=== PATIENT | female | born 1950 | race Caucasian/White ===

== ENCOUNTER 2023-06-21 12:59 | Day surgery (SDC) | payer MEDICARE, OTHER ==
[2023-06-21] VITALS (8 sets, daily range): BP systolic 106–145; BP diastolic 54–80; PULSE 76–86; RESP 15–16; TEMP 98; O2SAT 95–99
[~2023-06-21] VITALS: Ht 160 cm; Wt 62.5 kg
[~2023-06-21 12:59] MED LIST: ALPR0.5T8 PO; AMIT100T2 PO; FURO-61 PO; LEVO50TA8 PO; LISI10TA27 PO; LOP25T PO; MESA1.2T PO; MULT-1179 PO; PROBIOTIC1 EACH PO; PROM25TA14 PO; VITA150T
[2023-06-21] MEDS ORDERED: normal saline 1,000 ML IV SCH (13:20)
[2023-06-21] MEDS ORDERED: LORazepam 0.5 MG tablet PO PRN (13:20)
[2023-06-21] MEDS ORDERED: diphenhydrAMINE 25mg capsule PO PRN (13:20)
[2023-06-21] MEDS ORDERED: ESTR1PAT43 TOP (13:38)
[2023-06-21] MEDS ORDERED: LEVO25TA49 PO (13:38)
[2023-06-21] MEDS ORDERED: CALC-855 PO (13:38)
[2023-06-21 14:23] LABS: BASOPHILS # (AUTO) 0.1 X10'3 (0-0.2); BASOPHILS % (AUTO) 1.2 % (0-1); EOSINOPHILS # (AUTO) 0.2 X10'3 (0-0.9); EOSINOPHILS % (AUTO) 3.3 % (0-6); HEMATOCRIT 38.3 % (35.0-45.0); HEMOGLOBIN 12.6 g/dl (12.0-16.0); LYMPHOCYTES # (AUTO) 1.5 X10'3 (1.1-4.8); LYMPHOCYTES % (AUTO) 25.1 % (21-51); MEAN CORPUSCULAR HEMOGLOBIN 29.5 PG (27.0-31.0); MEAN CORPUSCULAR HGB CONC 32.8 g/dL (33.0-36.5); MEAN CORPUSCULAR VOLUME 89.9 FL (78-98); MEAN PLATELET VOLUME 8.7 FL (7.4-10.4); MONOCYTES # (AUTO) 0.4 X10'3 (0-0.9); MONOCYTES % (AUTO) 6.3 % (2-12); NEUTROPHILS # (AUTO) 3.7 X10'3 (1.8-7.7); NEUTROPHILS % (AUTO) 64.1 % (42-75); PLATELET COUNT 250 X10'3 (140-440); RED BLOOD COUNT 4.26 X10'6 (4.20-5.60); RED CELL DISTRIBUTION WIDTH 13.8 % (11.5-14.5); WHITE BLOOD COUNT 5.8 X10'3 (4.5-11.0)
[2023-06-21 14:40] LABS: ALBUMIN 3.7 G/DL (3.4-5.0); ANION GAP 9 (8-16); BLOOD UREA NITROGEN 24 MG/DL (7-18); BUN/CREATININE RATIO 21.8 (10.0-20.0); CALCIUM 9.4 MG/DL (8.5-10.1); CHLORIDE 100 MMOL/L (99-107); GLUCOSE 93 MG/DL (70-104); POTASSIUM 4.5 MMOL/L (3.5-5.1); SODIUM 139 MMOL/L (135-145); eGFR 49 ML/MIN
[2023-06-21] MEDS ORDERED: nitroGLYCERIN-Tridil 50MG/D5W 250 ML IV ONE (15:30)
[2023-06-21] MEDS ORDERED: fentaNYL/PF 50MCG/1 ML 2ML syringe ONE (15:30)
[2023-06-21] MEDS ORDERED: midazolam 1 mg/ML 2ml injection ONE (15:30)
[2023-06-21] MEDS ORDERED: LIDOcaine 1% (10mg/ml) 2ml vial ONE (15:30)
[2023-06-21] MEDS ORDERED: iohexol 350MG/ML 100ml bottle IV ONE (15:30)
[2023-06-21] MEDS ORDERED: heparin 1,000unit/ml 10ml vial 10 ML ONE (15:30)
[2023-06-21] MEDS ORDERED: verapamil 2.5 mg/ml inj IV ONE (15:30)
[2023-06-21] MEDS ORDERED: iohexol 350 MG/ML 50ML vial IV ONE (15:53)
--- NOTE | 2023-06-21 16:46 | NUR ---
Pt's hand slightly blue and c/o pain in the right hand. No numbness or tingling, CSM intact and sp02 pleth good. Removed 2cc for comfort but radial site started bleeding. Immediately placed 2 cc back in vasc band. Bleeding stable. Hand no longer looks blue but pt still c/o pain. States it's tolerable. Cont to monitor.
[2023-06-21] MEDS ORDERED: proCHLORperazine 10 MG/2 ml inj IV PRN (17:20)
[2023-06-21] MEDS ORDERED: normal saline 1000ml 1,000 ML IV SCH (17:20)
[2023-06-21] MEDS ORDERED: ondansetron/PF 4mg/2ml inj IV PRN (17:20)
[2023-06-21] MEDS ORDERED: OXAZEpam 15mg capsule PO PRN (17:20)
[2023-06-22 06:24] LABS: ISTAT Hct MIX 30 %PCV (35-45); ISTAT O2 SATURATION MIX VENOUS 76 % (60-80); ISTAT SOURCE BLNK
[2023-06-22 06:25] LABS: ISTAT Hct MIX 21 %PCV (35-45); ISTAT O2 SATURATION MIX VENOUS 70 % (60-80); ISTAT SOURCE BLNK
== END 2023-06-21 19:45 | disposition home or self-care (01) ==
LOC: SSTAY O 12:59
PROVIDERS: ATTEND Student in an Organized Health Care Education/Training Program
DX: I08.0 Rheumatic disorders of both mitral and aortic valves (principal); I10 Essential (primary) hypertension; I65.29 Occlusion and stenosis of unspecified carotid artery; Z88.2 Allergy status to sulfonamides; Z88.8 Allergy status to other drugs, medicaments and biological substances; Z79.899 Other long term (current) drug therapy; Z98.890 Other specified postprocedural states
CPT/HCPCS: 36415; 80048; 82803; 85014; 85025; 85610; 93005; 93460; 99152; 99153; A6258; J1644; J2250; J3010; J3490; J7030; Q0163; Q9967; A6402; C1751; C1769; C1894

== ENCOUNTER 2023-06-23 09:09 | Outpatient (CLI) | payer MEDICARE, OTHER ==
[~2023-06-23 09:09] MED LIST changes: +CALC-855 PO; +ESTR1PAT43 TOP; +LEVO25TA49 PO
== END 2023-06-23 23:59 | disposition home or self-care (01) ==
LOC: VAS 09:09
PROVIDERS: ATTEND Physician Assistant Surgical
DX: T81.718A Complication of other artery following a procedure, not elsewhere classified, initial encounter (principal); I72.9 Aneurysm of unspecified site; Y83.8 Other surgical procedures as the cause of abnormal reaction of the patient, or of later complication, without mention of misadventure at the time of the procedure; Y92.89 Other specified places as the place of occurrence of the external cause
CPT/HCPCS: 93931

== ENCOUNTER 2023-06-23 11:04 | Emergency (ER) | payer MEDICARE, OTHER ==
[~2023-06-23] VITALS: Ht 160 cm; Wt 59.8 kg
[2023-06-23 11:07] VITALS: TEMP 97.3
[2023-06-23 11:39] LABS: HEMATOCRIT 35.5 % (35.0-45.0); HEMOGLOBIN 11.8 g/dl (12.0-16.0); MEAN CORPUSCULAR HEMOGLOBIN 30.2 PG (27.0-31.0); MEAN CORPUSCULAR HGB CONC 33.3 g/dL (33.0-36.5); MEAN CORPUSCULAR VOLUME 90.6 FL (78-98); MEAN PLATELET VOLUME 8.6 FL (7.4-10.4); PLATELET COUNT 228 X10'3 (140-440); RED BLOOD COUNT 3.91 X10'6 (4.20-5.60); WHITE BLOOD COUNT 10.4 X10'3 (4.5-11.0)
[2023-06-23 11:52] LABS: ALANINE AMINOTRANSFERASE 35 U/L (12-78); ALBUMIN 3.7 G/DL (3.4-5.0); ALBUMIN/GLOBULIN RATIO 0.9 (1.1-1.5); ALKALINE PHOSPHATASE 96 IU/L (46-116); ANION GAP 7 (8-16); ASPARTATE AMINO TRANSFERASE 29 U/L (10-37); BILIRUBIN,TOTAL 0.3 MG/DL (0.1-1.0); BLOOD UREA NITROGEN 24 MG/DL (7-18); BUN/CREATININE RATIO 19.2 (10.0-20.0); CALCIUM 9.7 MG/DL (8.5-10.1); CHLORIDE 101 MMOL/L (99-107); CREATININE 1.25 MG/DL (0.40-0.90); GLUCOSE 96 MG/DL (70-104); POTASSIUM 4.6 MMOL/L (3.5-5.1); SODIUM 137 MMOL/L (135-145); TOTAL CARBON DIOXIDE 29.2 MMOL/L (24-32); TOTAL PROTEIN 7.6 G/DL (6.4-8.2); eGFR 42 ML/MIN
[2023-06-23 12:20] LABS: TOTAL CELLS COUNTED 100
[2023-06-23 12:21] LABS: PLATELET ESTIMATE NORMAL
[2023-06-23 12:38] LABS: D-DIMER 0.45 MG/L FEU (0-0.50)
[2023-06-23 13:09] VITALS: BP 127/50; PULSE 59; RESP 17; O2SAT 100
== END 2023-06-23 14:21 | disposition home or self-care (01) ==
LOC: ER 11:05
DX: R07.9 Chest pain, unspecified (principal); R06.02 Shortness of breath; K21.9 Gastro-esophageal reflux disease without esophagitis; F31.9 Bipolar disorder, unspecified; Z98.890 Other specified postprocedural states; Z88.2 Allergy status to sulfonamides; Z88.8 Allergy status to other drugs, medicaments and biological substances; Z79.899 Other long term (current) drug therapy; Z79.1 Long term (current) use of non-steroidal anti-inflammatories (NSAID)
CPT/HCPCS: 36415; 71045; 80053; 83880; 84484; 85007; 85025; 85379; 93005; 99285

== ENCOUNTER 2023-09-06 16:56 | Inpatient (IN) | payer MEDICARE, OTHER ==
[~2023-09-06] VITALS: Ht 160 cm; Wt 56.8 kg
[~2023-09-06 16:56] MED LIST changes: -ALPR0.5T8 PO; -LEVO50TA8 PO; -PROM25TA14 PO
--- NOTE | 2023-09-06 17:23 | NUR ---
cancel ct scan order as per dr bacon order as ct and cta head and neck was done at [facility].
[2023-09-06 18:03] LABS: BASOPHILS # (AUTO) 0.1 X10'3 (0-0.2); BASOPHILS % (AUTO) 0.6 % (0-1); EOSINOPHILS % (AUTO) 0 % (0-6); HEMATOCRIT 28.3 % (35.0-45.0); HEMOGLOBIN 8.8 g/dl (12.0-16.0); LYMPHOCYTES # (AUTO) 0.6 X10'3 (1.1-4.8); LYMPHOCYTES % (AUTO) 3.8 % (21-51); MEAN CORPUSCULAR HEMOGLOBIN 28.4 PG (27.0-31.0); MEAN CORPUSCULAR HGB CONC 31.2 g/dL (33.0-36.5); MEAN CORPUSCULAR VOLUME 91.1 FL (78-98); MEAN PLATELET VOLUME 7.1 FL (7.4-10.4); MONOCYTES # (AUTO) 0.4 X10'3 (0-0.9); MONOCYTES % (AUTO) 2.8 % (2-12); NEUTROPHILS # (AUTO) 13.5 X10'3 (1.8-7.7); NEUTROPHILS % (AUTO) 92.8 % (42-75); PLATELET COUNT 360 X10'3 (140-440); RED BLOOD COUNT 3.11 X10'6 (4.20-5.60); RED CELL DISTRIBUTION WIDTH 17.3 % (11.5-14.5); WHITE BLOOD COUNT 14.6 X10'3 (4.5-11.0)
[2023-09-06] MEDS ORDERED: normal saline 1000ml 1,000 ML IV ONE (18:05)
[2023-09-06 18:07] LABS: APTT 24 SECONDS (22-32); PROTHROMBIN TIME 10.4 SECONDS (9.0-12.0)
[2023-09-06 18:10] LABS: ALANINE AMINOTRANSFERASE 17 U/L (12-78); ALBUMIN 1.8 G/DL (3.4-5.0); ALBUMIN/GLOBULIN RATIO 0.5 (1.1-1.5); ALKALINE PHOSPHATASE 144 IU/L (46-116); ANION GAP 5 (8-16); ASPARTATE AMINO TRANSFERASE 20 U/L (10-37); BILIRUBIN,TOTAL 0.2 MG/DL (0.1-1.0); BLOOD UREA NITROGEN 19 MG/DL (7-18); BUN/CREATININE RATIO 14.5 (10.0-20.0); CHLORIDE 106 MMOL/L (99-107); CREATININE 1.31 MG/DL (0.40-0.90); GLUCOSE 106 MG/DL (70-104); POTASSIUM 4.3 MMOL/L (3.5-5.1); SODIUM 138 MMOL/L (135-145); TOTAL CARBON DIOXIDE 27.3 MMOL/L (24-32); TOTAL PROTEIN 5.5 G/DL (6.4-8.2); eCRCL 32 ML/MIN; eGFR 40 ML/MIN
[2023-09-06] MEDS ORDERED: temazepam 15mg capsule PO PRN (21:00)
[2023-09-06] MEDS ORDERED: aspirin 325mg tablet PO ONE (21:10)
[2023-09-06] MEDS ORDERED: FERR325T28 PO (22:11)
[2023-09-06] MEDS ORDERED: ondansetron/PF 4mg/2ml inj IV PRN (22:30)
[2023-09-06] MEDS ORDERED: diphenhydrAMINE 25mg capsule PO PRN (22:30)
[2023-09-06] MEDS ORDERED: acetaminophen 325mg tablet PO PRN ×2 (22:30)
[2023-09-06] MEDS ORDERED: magnesium hydroxide 30ml (MOM) UD suspension PO PRN (22:30)
[2023-09-06] MEDS: normal saline 1000ml 1,000 ML IV SCH (22:30)
[2023-09-06] MEDS ORDERED: diphenhydrAMINE 50 mg/ml inj IV PRN (22:30)
[2023-09-06] MEDS ORDERED: HYDROcodone/acetaminophen 5mg/325mg tablet PO PRN (22:30)
[2023-09-06] MEDS ORDERED: bisacodyl 10mg suppository rectal RC PRN (22:30)
[2023-09-06] MEDS ORDERED: morphine 2 MG/ML inj. syringe IV PRN (22:30)
[2023-09-06] MEDS ORDERED: mag hydrox/Alum hydrox/simeth 30ml oral suspension PO PRN (22:30)
[2023-09-06] MEDS ORDERED: ondansetron 4mg rapidly disintigrating tab PO PRN (22:30)
[2023-09-06 22:53] LABS: HEMOGLOBIN A1C 4.2 % (4.5-6.2)
[2023-09-06 22:57] LABS: CREATINE KINASE 21 U/L (26-192)
[2023-09-06 23:03] LABS: MAGNESIUM 1.8 MG/DL (1.5-2.4); PHOSPHORUS 3.2 MG/DL (2.3-4.5); PRO BRAIN NATRIURETIC PEPTIDE 1301 PG/ML (0-125); THYROID STIMULATING HORMONE 1.73 ulU/ml (0.34-4.50)
[2023-09-06 23:07] LABS: LIPASE 11 U/L (16-77)
[2023-09-06 23:58] LABS: D-DIMER 1.76 MG/L FEU (0-0.50)
[2023-09-07] VITALS (8 sets, daily range): BP systolic 88–106; BP diastolic 34–64; PULSE 78–88; RESP 11–16; TEMP 98.2; O2SAT 95–97
[2023-09-07 07:57] LABS: BASOPHILS # (AUTO) 0.1 X10'3 (0-0.2); EOSINOPHILS # (AUTO) 0.2 X10'3 (0-0.9); EOSINOPHILS % (AUTO) 2.3 % (0-6); HEMATOCRIT 27.8 % (35.0-45.0); HEMOGLOBIN 8.7 g/dl (12.0-16.0); LYMPHOCYTES # (AUTO) 1.3 X10'3 (1.1-4.8); LYMPHOCYTES % (AUTO) 15.2 % (21-51); MEAN CORPUSCULAR HEMOGLOBIN 28.7 PG (27.0-31.0); MEAN CORPUSCULAR HGB CONC 31.3 g/dL (33.0-36.5); MEAN CORPUSCULAR VOLUME 91.7 FL (78-98); MONOCYTES # (AUTO) 0.6 X10'3 (0-0.9); MONOCYTES % (AUTO) 7.3 % (2-12); NEUTROPHILS # (AUTO) 6.3 X10'3 (1.8-7.7); NEUTROPHILS % (AUTO) 74.2 % (42-75); PLATELET COUNT 359 X10'3 (140-440); RED BLOOD COUNT 3.03 X10'6 (4.20-5.60); RED CELL DISTRIBUTION WIDTH 17.7 % (11.5-14.5); WHITE BLOOD COUNT 8.5 X10'3 (4.5-11.0)
[2023-09-07] MEDS ORDERED: docusate sod 100mg capsule PO SCH (08:00)
[2023-09-07 08:51] LABS: ALANINE AMINOTRANSFERASE 19 U/L (12-78); ALBUMIN 1.6 G/DL (3.4-5.0); ALBUMIN/GLOBULIN RATIO 0.5 (1.1-1.5); ALKALINE PHOSPHATASE 138 IU/L (46-116); ANION GAP 6 (8-16); ASPARTATE AMINO TRANSFERASE 20 U/L (10-37); BILIRUBIN,TOTAL 0.2 MG/DL (0.1-1.0); BLOOD UREA NITROGEN 17 MG/DL (7-18); BUN/CREATININE RATIO 15.2 (10.0-20.0); CALCIUM 7.9 MG/DL (8.5-10.1); CHLORIDE 110 MMOL/L (99-107); CHOL/HDL RATIO 2.1 (0.00-4.99); CHOLESTEROL 147 MG/DL (0-200); CREATININE 1.12 MG/DL (0.40-0.90); GLUCOSE 73 MG/DL (70-104); HDL CHOLESTEROL 69 MG/DL (35-60); LDL CHOLESTEROL 61 MG/DL (50-100); POTASSIUM 4.8 MMOL/L (3.5-5.1); SODIUM 140 MMOL/L (135-145); TOTAL CARBON DIOXIDE 23.7 MMOL/L (24-32); TRIGLYCERIDES 72 MG/DL (20-135); eCRCL 38 ML/MIN; eGFR 48 ML/MIN
[2023-09-07] MEDS: aspirin 81mg tab.chew PO SCH (10:01)
[2023-09-07] MEDS: pantoprazole 40mg Tablet.DR PO SCH (10:01)
[2023-09-07] MEDS: normal saline 1000ml 1,000 ML IV SCH ×3 (10:08→22:00)
[2023-09-07] MEDS: CefTRIAXone/D5W-Rocephin 1gm 50 ML IV SCH (12:16)
[2023-09-07 14:23] LABS: % IRON SATURATION 16 % (11-46); IRON 20 UG/DL (49-151); TOTAL IRON BINDING CAPACITY 125 UG/DL (259-388)
[2023-09-07] MEDS: sodium ferric gluc complex inj 125 MG in normal saline 100ml IV soln 100 ML IV SCH (17:39)
--- NOTE | 2023-09-07 18:10 | NUR ---
Patient in room ICU 2041. I have received report from Arpan LENNON and had the opportunity to ask questions and assume patient care.
[2023-09-07] MEDS ORDERED: ESTR1PAT32 TD ×2 (19:23→19:26)
[2023-09-07] MEDS ORDERED: methylPREDNISolone sod succ/PF 40mg inj. IV SCH (20:00)
[2023-09-07] MEDS: heparin, porcine 5000 units/ml vial SQ SCH (20:22)
[2023-09-07] MEDS ORDERED: amitriptyline 50mg tablet PO SCH (21:00)
[2023-09-08] VITALS: BP 84/40; PULSE 80; RESP 11; O2SAT 96
[2023-09-08 04:21] VITALS: BP 97/41; PULSE 85; RESP 10; O2SAT 95
[2023-09-08] MEDS: normal saline 1000ml 1,000 ML IV SCH ×2 (04:30→07:46)
[2023-09-08] MEDS ORDERED: ESTR1PAT32 TD (04:59)
[2023-09-08] MEDS ORDERED: ESTRADIOL 0.075 MG/24 HR TP SCH (05:00)
[2023-09-08 05:56] LABS: BASOPHILS % (AUTO) 0.2 % (0-1); EOSINOPHILS % (AUTO) 0 % (0-6); HEMATOCRIT 27.4 % (35.0-45.0); HEMOGLOBIN 8.8 g/dl (12.0-16.0); LYMPHOCYTES # (AUTO) 0.5 X10'3 (1.1-4.8); LYMPHOCYTES % (AUTO) 7.3 % (21-51); MEAN CORPUSCULAR HEMOGLOBIN 29.2 PG (27.0-31.0); MEAN CORPUSCULAR HGB CONC 32.1 g/dL (33.0-36.5); MEAN CORPUSCULAR VOLUME 91.1 FL (78-98); MEAN PLATELET VOLUME 7.4 FL (7.4-10.4); MONOCYTES # (AUTO) 0.1 X10'3 (0-0.9); NEUTROPHILS # (AUTO) 6.3 X10'3 (1.8-7.7); NEUTROPHILS % (AUTO) 90.5 % (42-75); PLATELET COUNT 371 X10'3 (140-440); RED CELL DISTRIBUTION WIDTH 17.3 % (11.5-14.5)
[2023-09-08 06:20] LABS: ALANINE AMINOTRANSFERASE 21 U/L (12-78); ALBUMIN 1.5 G/DL (3.4-5.0); ALBUMIN/GLOBULIN RATIO 0.4 (1.1-1.5); ALKALINE PHOSPHATASE 146 IU/L (46-116); ANION GAP 7 (8-16); ASPARTATE AMINO TRANSFERASE 13 U/L (10-37); BILIRUBIN,TOTAL 0.1 MG/DL (0.1-1.0); BLOOD UREA NITROGEN 12 MG/DL (7-18); BUN/CREATININE RATIO 12.9 (10.0-20.0); CHLORIDE 109 MMOL/L (99-107); CREATININE 0.93 MG/DL (0.40-0.90); GLUCOSE 120 MG/DL (70-104); POTASSIUM 4.4 MMOL/L (3.5-5.1); SODIUM 140 MMOL/L (135-145); TOTAL CARBON DIOXIDE 23.6 MMOL/L (24-32); TOTAL PROTEIN 4.9 G/DL (6.4-8.2); eCRCL 45 ML/MIN; eGFR 59 ML/MIN
--- NOTE | 2023-09-08 06:23 | NUR ---
Problems reprioritized. Patient report given, questions answered & plan of care reviewed with Ashley LENNON.
--- NOTE | 2023-09-08 07:50 | NUR ---
Carotid US being done at bedside.
[2023-09-08 08:00] VITALS: BP 99/41; PULSE 88; RESP 11; RESP 13; RESP 14; O2SAT 100; O2SAT 97
[2023-09-08] MEDS ORDERED: methylPREDNISolone sod succ/PF 40mg inj. IV SCH (08:00)
[2023-09-08] MEDS ORDERED: calcium carbonate/vitamin D3 tablet PO SCH (08:00)
[2023-09-08] MEDS ORDERED: mesalamine 1.2gm ER tablet PO SCH (08:00)
[2023-09-08] MEDS ORDERED: multivitamins, therapeutics tablet PO SCH (08:00)
[2023-09-08] MEDS ORDERED: levoTHYROXINE 25mcg tablet PO SCH (08:00)
[2023-09-08] MEDS: CefTRIAXone/D5W-Rocephin 1gm 50 ML IV SCH (09:03)
[2023-09-08] MEDS: heparin, porcine 5000 units/ml vial SQ SCH (09:09)
[2023-09-08] MEDS: aspirin 81mg tab.chew PO SCH (09:10)
[2023-09-08] MEDS: pantoprazole 40mg Tablet.DR PO SCH (09:13)
[2023-09-08] MEDS: sodium ferric gluc complex inj 125 MG in normal saline 100ml IV soln 100 ML IV SCH (09:14)
[2023-09-08 12:00] VITALS: BP 90/40; PULSE 88; RESP 12; O2SAT 100
[2023-09-08] MEDS ORDERED: ASPI81TA53 PO (12:27)
[2023-09-08 13:00] VITALS: BP 103/44; PULSE 90; RESP 14; O2SAT 100
[2023-09-08] MEDS ORDERED: METO-395 PO (13:12)
[2023-09-08] MEDS ORDERED: LISI2.5T14 PO (13:12)
[2023-09-08] MEDS ORDERED: CIPR-202 PO (13:13)
[2023-09-08 14:30] VITALS: BP 109/50; PULSE 93; RESP 16
[2023-09-08] MEDS ORDERED: midodrine tablet 2.5 MG TABLET PO SCH (16:00)
== END 2023-09-08 15:00 | disposition home or self-care (01) | DRG 682 ==
LOC: ER 16:56 → ED HOLD 22:32 → ICU 2S 09-07 07:10
PROVIDERS: ADMIT Family Medicine; ATTEND Internal Medicine
DX: N17.0 Acute kidney failure with tubular necrosis (principal); I21.A1 Myocardial infarction type 2; G45.9 Transient cerebral ischemic attack, unspecified; I50.32 Chronic diastolic (congestive) heart failure; K51.90 Ulcerative colitis, unspecified, without complications; N39.0 Urinary tract infection, site not specified; D50.9 Iron deficiency anemia, unspecified; I11.0 Hypertensive heart disease with heart failure; D72.829 Elevated white blood cell count, unspecified; K21.9 Gastro-esophageal reflux disease without esophagitis; G89.4 Chronic pain syndrome; E86.1 Hypovolemia; I95.9 Hypotension, unspecified; F32.A Depression, unspecified; F41.9 Anxiety disorder, unspecified; D63.8 Anemia in other chronic diseases classified elsewhere; E66.9 Obesity, unspecified; Z88.8 Allergy status to other drugs, medicaments and biological substances; Z95.2 Presence of prosthetic heart valve; Z99.3 Dependence on wheelchair; Z88.2 Allergy status to sulfonamides; Z90.710 Acquired absence of both cervix and uterus; Z90.49 Acquired absence of other specified parts of digestive tract; Z87.440 Personal history of urinary (tract) infections; Z79.899 Other long term (current) drug therapy; Z68.22 Body mass index [BMI] 22.0-22.9, adult
CPT/HCPCS: 36415; 71045; 80053; 80061; 82550; 83036; 83540; 83550; 83605; 83690; 83735; 83880; 84100; 84443; 84484; 85025; 85379; 85610; 85730; 87040; 87081; 93005; 93306; 93880; 97116; 97161; 97530; 99285; A4615; A6213; A6250; G0378; J0696; J1644; J2916; J2920; J3490; J7030